=== PATIENT | male | born 1985 | race Two or more races ===

== ENCOUNTER 2018-09-06 14:45 | Emergency (ER) | payer OTHER ==
[~2018-09-06] VITALS: Ht 182.9 cm; Wt 102.5 kg
[2018-09-06] MEDS ORDERED: BUPRENORPHINE HC8 MG SL (14:51)
== END 2018-09-06 18:30 | disposition home or self-care (01) ==
LOC: ER 14:45
DX: H53.8 Other visual disturbances (principal); M62.838 Other muscle spasm